=== PATIENT | female | born 2000 | race Caucasian/White ===

== ENCOUNTER 2018-03-02 18:46 | Emergency (ER) | payer MEDICAID, OTHER ==
[~2018-03-02] VITALS: Ht 157.5 cm; Wt 79.4 kg
[2018-03-02] MEDS ORDERED: NORE1TAB61 (19:16)
[2018-03-02] MEDS ORDERED: CYCL10TA9 PO (19:39)
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
== END 2018-03-02 19:45 | disposition home or self-care (01) ==
LOC: ER 18:49
DX: S06.0X0A Concussion without loss of consciousness, initial encounter (principal); S13.4XXA Sprain of ligaments of cervical spine, initial encounter; R40.2142 Coma scale, eyes open, spontaneous, at arrival to emergency department; R40.2252 Coma scale, best verbal response, oriented, at arrival to emergency department; R40.2362 Coma scale, best motor response, obeys commands, at arrival to emergency department; V89.2XXA Person injured in unspecified motor-vehicle accident, traffic, initial encounter
CPT/HCPCS: 99282